=== PATIENT | female | born 1970 | race Caucasian/White ===

== ENCOUNTER 2017-08-03 16:56 | Emergency (ER) | payer OTHER ==
[2017-08-03] MEDS ORDERED: cefTRIAXone 1 GM, Lidocaine 1% 2.1 ML IM ONE ×2 (17:50)
--- NOTE | 2017-08-03 17:50 | EDM.PDOC ---
ED HPI GENERAL MEDICAL PROBLEM - General Chief Complaint: Genitourinary Problem Stated Complaint: UTI Time Seen by Provider: 08/03/17 17:30 Source of Information: Reports: Patient History Limitations: Reports: No Limitations - History of Present Illness INITIAL COMMENTS - FREE TEXT/NARRATIVE: Deepika presents today with complaints of urinary frequency, right flank pain and urgency for 24 hours. She has tried use of pushing oral fluids and ibuprofen without relief. 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 Bladder Pain Score (Numeric/FACES): 3 - Related Data Allergies Allergy/AdvReac Type Severity Reaction Status Date / Time codeine Allergy Intermediate Anxiety Unverified 08/03/17 17:59 Home Meds: Home Meds Apremilast [Otezla] 1 tab PO BID 08/03/17 [History] Ranitidine [Zantac] 150 mg PO BID 08/03/17 [History] sulfaSALAzine [sulfaSALAzine DR] 1 tab PO DAILY 08/03/17 [History] sulfaSALAzine [sulfaSALAzine DR] 2 tab PO BEDTIME 08/03/17 [History] Past Medical History HEENT History: Reports: Impaired Vision Gastrointestinal History: Reports: GERD Genitourinary History: Reports: Other (See Below) Other Genitourinary History: 1 past uti [employer] OF PS[employer]CHI[employer]RY History: Reports: , Spontaneous Musculoskeletal History: Reports: Fracture Other Musculoskeletal History: finger Psychiatric History: Reports: Anxiety Dermatologic History: Reports: Psoriasis - Infectious Disease History Infectious Disease History: Reports: Chicken Pox - Past Surgical History GI Surgical History: Reports: Cholecystectomy Social & Family History - Tobacco Use Smoking Status *Q: Never Smoker Second Hand Smoke Exposure: No - Caffeine Use Caffeine Use: Reports: Tea - Alcohol Use Days Per Week of Alcohol Use: 2 Number of Drinks Per Day: 2 Total Drinks Per Week: 4 - Recreational Drug Use Recreational Drug Use: No ED ROS GENERAL - Review of Systems Review Of Systems: See Below Constitutional: Denies: Fever, Chills, Malaise, Weakness, Diaphoresis HEENT: Reports: No Symptoms Respiratory: Denies: Shortness of Breath, Wheezing, Cough Cardiovascular: Denies: Chest Pain, Dyspnea on Exertion, Edema, Lightheadedness , Palpitations, Syncope GI/Abdominal: Reports: No Symptoms : Reports: Dysuria, Flank Pain, Frequency, Urgency. Denies: Hematuria, Incontinence, Urinary Retention Musculoskeletal: Reports: No Symptoms Skin: Denies: Dryness, Rash, Erythema Neurological: Reports: No Symptoms Psychiatric: Reports: No Symptoms Hematologic/Lymphatic: Reports: No Symptoms Immunologic: Reports: No Symptoms ED EXAM, GI/ABD - Physical Exam Exam: See Below Text/Narrative:: Deepika is an alert, oriented and pleasant 47 year old female presenting to the ER with complaints of frequency, urgency, and dysuria for 24 hours. She denies fever, chills, nausea, vomiting or other complaints. Exam Limited By: No Limitations General Appearance: Alert, WD/WN, Mild Distress Eyes: Bilateral: EOMI Ears: Normal External Exam, Normal Canal, Hearing Grossly Normal, Normal TMs Nose: Normal Inspection, Normal Mucosa, No Blood Throat/Mouth: Normal Inspection, Normal Lips, Normal Teeth, Normal Gums, Normal Oropharynx, Normal Voice, No Airway Compromise Head: Atraumatic, Normocephalic Neck: Normal Inspection, Supple, Non-Tender, Full Range of Motion. No: Lymphadenopathy (R), Lymphadenopathy (L) Respiratory/Chest: No Respiratory Distress, Lungs Clear, Normal Breath Sounds, No Accessory Muscle Use, Chest Non-Tender Cardiovascular: Normal Peripheral Pulses, Regular Rate, Rhythm, No Edema, No Murmur GI/Abdominal Exam: Normal Bowel Sounds, Soft, Non-Tender, No Organomegaly, No Mass, Other (suprapubic tenderness) Back Exam: Normal Inspection, Full Range of Motion, CVA Tenderness (R). No: CVA Tenderness (L) Extremities: Normal Inspection, Normal Range of Motion, Non-Tender, No Pedal Edema, Normal Capillary Refill Neurological: Alert, Oriented, CN II-XII Intact, Normal Cognition, Normal Gait, No Motor/Sensory Deficits Psychiatric: Normal Affect, Normal Mood Skin Exam: Warm, Dry, Intact, Normal Color, No Rash Lymphatic: No Adenopathy Course - Vital Signs Last Recorded V/S: Last Vital Signs Temp 36.6 C 08/03/17 17:27 Pulse 64 08/03/17 18:00 Resp 18 08/03/17 18:00 BP 155/78 H 08/03/17 18:00 Pulse Ox 95 08/03/17 18:00 - Orders/Labs/Meds Orders: Active Orders 24 hr Category Date Time Status CULTURE URINE [RM] Stat Lab 08/03/17 17:53 Received Labs: Laboratory Tests 08/03/17 Range/Units 17:10 Urine Color Yellow Urine Appearance Cloudy Urine pH 5.0 (4.5-8.0) Ur Specific [place] 1.020 (1.008-1.030) Urine Protein Trace (NEGATIVE) mg/dL Urine Glucose (UA) Normal (NEGATIVE) mg/dL Urine Ketones Negative (NEGATIVE) mg/dL Urine Occult Blood Large (NEGATIVE) Urine Nitrite Negative (NEGATIVE) Urine Bilirubin Negative (NEGATIVE) Urine Urobilinogen Normal (NORMAL) mg/dL Ur Leukocyte Esterase Large (NEGATIVE) Urine RBC 30-40 H (0-5) Urine WBC Packed H (0-5) Ur Epithelial Cells Few Amorphous Sediment Not seen Urine Bacteria Many Urine Mucus Not seen UA reviewed with patient, we will obtain culture. Meds: Medications Discontinued Medications Generic Name Dose Route Start Last Admin Trade Name Juwan PRN Reason Stop Dose Admin Ceftriaxone Sodium 1 gm/ 0 gm 08/03/17 17:50 08/03/17 18:06 Lidocaine HCl 2.1 ml IM 08/03/17 17:51 1 inj ONETIME ONE Administration Departure - Departure Time of Disposition: 17:59 Disposition: Home, Self-Care 01 Condition: Good Clinical Impression: UTI, Urinary tract infectious disease, Acute right flank pain - Discharge Information Instructions: Urinary Tract Infection, Adult Referrals: She Smith, [employer] [Primary Care Provider] - Forms: ED Department Discharge Additional Instructions: You have an acute Urinary tract infection with right flank pain that could be pyelonephritis. You were given ceftriaxone 1 gram IM in the emergency room. Instymed for ciprofloxacin 500mg by mouth twice per day for 10 days. Pyridium to take three times a day as needed for pain. You can also take ibuprofen 800mg by mouth three times a day as needed for pain. use of acetaminophen can also help for pain as needed. Hard copy script for fluconazole in case yeast infection develops. Your urine will be cultured today to make sure the antibiotic you were given is effective at taking care of the infection. You will be notified in 3 days if you need to change antibiotics. If you develop worsening symptoms, return to the emergency room. It is best to follow up with your primary provider in 3 days for a recheck. - My Orders Last 24 Hours: My Active Orders 08/03/17 17:53 CULTURE URINE [RM] Stat - Assessment/Plan Last 24 Hours: My Active Orders 08/03/17 17:53 CULTURE URINE [RM] Stat Assessment:: UTI Right flank pain Plan: Deepika is an alert, oriented 47 year old with an acute Urinary tract infection and right flank pain that could be pyelonephritis. She was given ceftriaxone 1 gram IM in the emergency room. Instymed for ciprofloxacin 500mg by mouth twice per day for 10 days. Pyridium to take three times a day as needed for pain. She can also take ibuprofen 800mg by mouth three times a day as needed for pain. Use of acetaminophen can also help for pain as needed. Hard copy script for fluconazole in case yeast infection develops. Her urine will be cultured today to make sure the antibiotic you were given is effective at taking care of the infection. Patient will be notified in 3 days if there is a need to change antibiotics. If she develops worsening symptoms, return to the emergency room. It is best to follow up with her primary provider in 3 days for a recheck.
[2017-08-03 18:01] VITALS: BP 155/78
== END 2017-08-03 18:30 | disposition home or self-care (01) ==
LOC: JP.ED 16:56
DX: N39.0 Urinary tract infection, site not specified (principal); K21.9 Gastro-esophageal reflux disease without esophagitis; L40.9 Psoriasis, unspecified; Z90.49 Acquired absence of other specified parts of digestive tract; Z79.899 Other long term (current) drug therapy; Z88.5 Allergy status to narcotic agent
CPT/HCPCS: 81001; 87086; 96372; 99284; J0696